=== PATIENT | female | born 1960 ===

== ENCOUNTER 2022-12-11 13:50 | Inpatient (IN) | payer OTHER ==
[~2022-12-11] VITALS: Ht 154.9 cm; Wt 59.4 kg
[2022-12-11] MEDS ORDERED: PEPCID AC10 MG PO (14:49)
[2022-12-11] MEDS ORDERED: SYNTHROID112 MCG PO (14:49)
[2022-12-11] MEDS ORDERED: COZAAR100 MG PO (14:49)
[2022-12-11] MEDS ORDERED: CRESTOR10 MG PO (14:50)
[2022-12-17] MEDS ORDERED: LORATADINE10 MG (08:07)
[2022-12-17] MEDS ORDERED: ESTRADIOL1 EAC5 (08:07)
[2022-12-17] MEDS ORDERED: PANTOPRAZOLE SO40 MG (08:07)
== END 2022-12-18 13:12 | disposition home or self-care (01) | DRG 330 ==
LOC: SURG 12-16 12:30 → O/R 12-16 14:45 → SURH 12-16 14:45
PROVIDERS: ADMIT Colon & Rectal Surgery; ATTEND Colon & Rectal Surgery
PROC: 0DBP4ZZ Excision of Rectum, Percutaneous Endoscopic Approach (ICD-10-PCS; 2022-12-16)
PROC: 0DJD8ZZ Inspection of Lower Intestinal Tract, Via Natural or Artificial Opening Endoscopic (ICD-10-PCS; 2022-12-16)
PROC: 0DTN4ZZ Resection of Sigmoid Colon, Percutaneous Endoscopic Approach (ICD-10-PCS; principal; 2022-12-16 14:00)
DX: K57.32 Diverticulitis of large intestine without perforation or abscess without bleeding (principal); K92.1 Melena; I11.9 Hypertensive heart disease without heart failure; Z20.822 Contact with and (suspected) exposure to COVID-19